=== PATIENT | female | born 2000 | race Caucasian/White ===

== ENCOUNTER 2023-06-19 20:47 | Emergency (ER) | payer OTHER ==
[2023-06-19] MEDS ORDERED: Metoclopramide HCl 10 MG/2 ML VIAL ONE (21:18)
[2023-06-19] MEDS ORDERED: diphenhydrAMINE 50 MG/ML VIAL ONE (21:18)
[2023-06-19] MEDS ORDERED: Dexamethasone 10 MG/ML VIAL ONE (21:18)
[2023-06-19] MEDS ORDERED: Ketorolac Tromethamine 30 MG/ML VIAL ONE (21:18)
[2023-06-19 21:59] LABS: #Eosinphils 0.1 10x3/uL (0.0-0.5); #Monocytes 0.6 10x3/uL (0.0-1.1); #Neutrophils 6.9 10x3/uL (1.5-8.4); %Basophils 0.3 % (0.0-2.0); %Eosinophils 0.8 % (0.0-6.0); %Lymphocytes 22.8 % (18.0-47.0); %Monocytes 5.9 % (0.0-10.0); %Neutrophils 69.9 % (40.0-75.0); Hematocrit 40.2 % (34.9-44.5); Hemoglobin 13.3 g/dL (12.0-15.5); Mean Corpuscular HGB CONC 33.1 g/dL (32.0-36.0); Mean Corpuscular Hemoglobin 28.4 pg (27.0-33.0); Mean Corpuscular Volume 85.9 fl (81.6-98.3); Mean Platelet Volume 11.8 fl (7.4-10.4); Platelet Count 241 10x3/uL (150-450); RBC Distribution Width 13.3 % (11.5-14.5); Red Blood Cell (RBC) Count 4.68 10x6/uL (3.90-5.03); White Blood Cell (WBC) Count 9.9 10x3/uL (3.5-10.5)
[2023-06-19 22:06] LABS: BHCG - Serum Negative (NEGATIVE); Pregs Control Background? CLEAR/WHITE (CLR/WHITE); Pregs Control Bar Appear? YES (CONTROL BAR)
[2023-06-19 22:14] LABS: ALT (SGPT) 16 U/L (8-55); AST (SGOT) 20 U/L (5-34); Albumin 4.5 g/dL (3.5-5.0); Alkaline Phosphatase 60 U/L (40-110); Anion Gap 17 mmol/L (10-20); BUN (Urea Nitrogen) 12 mg/dL (7.0-18.7); Bilirubin, Total 0.3 mg/dL (0.2-1.2); Calc. Creatinine Clearance 0 mL/min (70-130); Calcium 9.6 mg/dL (7.8-10.44); Carbon Dioxide 23 mmol/L (22-29); Chloride 104 mmol/L (98-107); Estimated GFR 99; Globulin 3.5 g/dL (2.4-3.5); Glucose 95 mg/dL (70-105); Potassium 3.5 mmol/L (3.5-5.1); Sodium 140 mmol/L (136-145)
== END 2023-06-19 23:05 | disposition home or self-care (01) ==
LOC: CSHERS 20:47
DX: G43.919 Migraine, unspecified, intractable, without status migrainosus (principal)
CPT/HCPCS: 80053; 84703; 85025; 86140; 96374; 96375; J1100; J1200; J1885; J2765